=== PATIENT | female | born 1985 | race Two or more races ===

== ENCOUNTER → 2022-06-18 | Day surgery (SDC) | payer OTHER ==
[~2022-06-18] VITALS: Ht 154.9 cm; Wt 73.5 kg
[~2022-06-18] MED LIST: CYTOMEL5 MCG PO; SYNTHROID100 MCG PO; ULTRACET PO
== END | disposition home or self-care (01) ==
LOC: ADM 06-13 11:30 → CIR.AMB 05:52
PROVIDERS: ATTEND Obstetrics & Gynecology Gynecology
DX: N36.1 Urethral diverticulum (principal); Z20.822 Contact with and (suspected) exposure to COVID-19; Z86.16 Personal history of COVID-19; E06.3 Autoimmune thyroiditis